=== PATIENT | female | born 1955 | race Caucasian/White ===

== ENCOUNTER 2017-01-02 09:44 | Day surgery (SDC) | payer BC ==
[2017-01-02 10:43] VITALS: RESP 16
[2017-01-02] MEDS ORDERED: LIDOCAINE HCL 2% MPF SOL ONE (11:15)
[2017-01-02] MEDS ORDERED: BUPIVACAINE HCL 0.5% MPF 10 ML SOL ONE (11:16)
[2017-01-02] MEDS ORDERED: MIDAZOLAM 2 MG/2 ML SOL ONE (11:38)
[2017-01-02] MEDS ORDERED: PROPOFOL 10 MG/ML EMU IV ONE (11:38)
[2017-01-02] MEDS ORDERED: LIDOCAINE HCL 1% MPF SOL ONE (11:38)
[2017-01-02] MEDS ORDERED: FENTANYL CITRATE 50 MCG/ML SOL ONE (11:38)
[2017-01-02 13:43] VITALS: BP 105/60; PULSE 57; TEMP 98; O2SAT 94
== END 2017-01-02 14:09 | disposition home or self-care (01) ==
LOC: SURG 09:44
PROVIDERS: ATTEND Orthopaedic Surgery
DX: M67.441 Ganglion, right hand (principal)
CPT/HCPCS: 26160; 99001; J2001; J2250; J2704; J3010; A6402

== ENCOUNTER 2017-11-24 07:36 | Day surgery (SDC) | payer BC ==
[2017-11-24] MEDS ORDERED: PROPOFOL 500 MG/50 ML EMU IV ONE (08:39)
[2017-11-24 09:48] VITALS: BP 109/71; PULSE 52; RESP 18; TEMP 97.2; O2SAT 99
== END 2017-11-24 10:10 | disposition home or self-care (01) ==
LOC: SURG 07:36
PROVIDERS: ATTEND Surgery
DX: K62.5 Hemorrhage of anus and rectum (principal)
CPT/HCPCS: J2704